=== PATIENT | male | born 1960 | race Caucasian/White ===

== ENCOUNTER → 2017-02-21 | Outpatient (CLI) | payer BC ==
[~2017-02-21] MED LIST: ASPI81TA28 PO; LORA-741 PO; NAPR1TAB9 PO; OMEG10007 PO; PARO1TAB27 PO; SIMV40TA2 PO; ZOLP5TAB6 PO; [UNRECOGNIZED DRUG - REMARK] PO
[2017-02-21 10:03] LABS: ALT/SGPT 31 U/L (12-78); BLOOD UREA NITROGEN 14 mg/dl (7-18); BUN/CREATININE RATIO 13.9 (10-20); CARBON DIOXIDE 28 mmol/L (21-32); CHLORIDE 107 mmol/L (98-107); CHOLESTEROL 158 mg/dl (0-200); GLUCOSE 94 mg/dl (70-99); POTASSIUM 4.3 mmol/L (3.5-5.1); SODIUM 141 mmol/L (136-145); TRIGLYCERIDES 154 mg/dl (0-150); VERY LOW DENSITY LIPOPROT CALC 31 mg/dl
[2017-02-21 10:06] LABS: CALCIUM 8.2 mg/dl (8.5-10.1)
[2017-02-21 10:12] LABS: AST/SGOT 20 U/L (15-37); CHOLESTEROL/HDL RATIO 4.8; HDL CHOLESTEROL 33 mg/dl; LDL CHOLESTEROL CALCULATED 94 mg/dl
== END | disposition home or self-care (01) ==
LOC: C.LAB1850 06:56
PROVIDERS: ATTEND Internal Medicine
DX: E78.5 Hyperlipidemia, unspecified (principal); Z12.5 Encounter for screening for malignant neoplasm of prostate; H49.20 Sixth [abducent] nerve palsy, unspecified eye

== ENCOUNTER → 2017-09-17 | Outpatient (CLI) | payer OTHER ==
[2017-09-17 10:24] LABS: ALT/SGPT 31 U/L (12-78); AST/SGOT 15 U/L (15-37); BLOOD UREA NITROGEN 10 mg/dl (7-18); CALCIUM 8.9 mg/dl (8.5-10.1); CARBON DIOXIDE 29 mmol/L (21-32); CREATININE 1.13 mg/dl (0.60-1.40); GLUCOSE 106 mg/dl (70-99); POTASSIUM 4.2 mmol/L (3.5-5.1); SODIUM 141 mmol/L (136-145)
[2017-09-17 10:27] LABS: CHOLESTEROL 130 mg/dl (0-200); LDL CHOLESTEROL CALCULATED 81 mg/dl
== END | disposition home or self-care (01) ==
LOC: C.LAB1850 06:56
PROVIDERS: ATTEND Internal Medicine
DX: Z00.00 Encounter for general adult medical examination without abnormal findings (principal); Z11.59 Encounter for screening for other viral diseases; E78.5 Hyperlipidemia, unspecified